=== PATIENT | female | born 1995 | race Two or more races ===

== ENCOUNTER 2022-04-20 22:34 | Observation (INO) | payer MEDICAID ==
[~2022-04-20] VITALS: Ht 169 cm; Wt 94.8 kg
[2022-04-20] MEDS ORDERED: PNV1TABL76 PO (23:42)
== END 2022-04-21 02:50 | disposition home or self-care (01) ==
LOC: 8 EST LDRP 22:34
PROVIDERS: ADMIT Obstetrics & Gynecology; ATTEND Obstetrics & Gynecology
DX: O26.893 Other specified pregnancy related conditions, third trimester (principal); R10.9 Unspecified abdominal pain; O62.9 Abnormality of forces of labor, unspecified; Z3A.39 39 weeks gestation of pregnancy
CPT/HCPCS: 59025; 76805; 76818; G0378; 99281